=== PATIENT | female | born 1975 | race Caucasian/White ===

== ENCOUNTER 2016-08-08 09:13 | Observation (INO) | payer OTHER ==
--- NOTE | 2016-08-03 16:30 | CONS ---
DATE OF ADMISSION: 08/08/2016 DATE OF CONSULTATION: TYPE OF CONSULTATION: Preoperative internal medicine REASON FOR CONSULTATION: Consultation requested by Dr. Milton Warren for medical evaluation and clearance of a 41-year-old woman about to undergo surgery. Thank you, Dr. Warren, for allowing us to participate in care of this patient. HISTORY OF PRESENT ILLNESS: Clau Costa a 41-year-old woman, problems with her neck, currently b eing admitted for correction of the above problem. She has had neck issues for a while and hopefull y it will be corrected at this particular junction. In terms of her prior surgical history, the patient has had lumbar spine or lumbar disk surgery as w ell as breast reduction and laparoscopic cholecystectomy. She has not had any medical hospitalizati ons and her pregnancies were vaginal deliveries. Her general health has been good. MEDICATIONS: She currently takes no regular medications other than occasional pain medications. ALLERGIES: SHE IS SENSITIVE TO MORPHINE AND HAS ENVIRONMENTAL ALLERGIES. SOCIAL HISTORY: The patient is , has 2 children. She does not smoke or drink alcoholic beve rages. Does drink coffee. Usually has no difficulty sleeping at night and is employed. FAMILY HISTORY: Both parents are . Father at age 58 of an [place] and hypertension. Mothe r 51, congestive heart failure and other cardiac issues. Four siblings are in good health. There i s family history of heart, cancer, hypertension and stroke. No diabetes or thyroid issues. REVIEW OF SYSTEMS: HEENT: Periodic headaches. CARDIORESPIRATORY: Denies any chest pain or shortness of breath. GASTROINTESTINAL: No melena or hematemesis. GENITOURINARY: No urgency, frequency. GYNECOLOGIC: Regular menses, up to date . MUSCULOSKELETAL: Positive for neck pain. NEUROPSYCHIATRIC: Unremarkable. GENERAL HEALTH: As above. PHYSICAL EXAMINATION: VITAL SIGNS: The patient's blood pressure was 140/90, pulse was 80 and regular, respirations were 1 8, temperature 98.2, height 65 inches, weight 212 pounds. GENERAL: The patient was noted to be a well-developed, well-nourished female, alert and cooperative , in no apparent acute distress, oriented to time, place, and person. HEENT: Head was atraumatic. Eyes: Pupils were equal, reactive to light and accommodation. Fundi were benign. Tympanic membranes were unremarkable. Nose was negative. Mouth was unremarkable. Fa ir oral hygiene was present. NECK: Supple without any rigidity. Trachea was midline. Thyroid was unremarkable. Neck veins wer e flat. Carotid pulses were equal. No bruits were heard. BACK: Unremarkable. CHEST: Symmetrical. Breasts and axillary exam did not reveal any masses; however scars from prior breast reduction surgery were noted. LUNGS: Clear to percussion and auscultation. HEART: PMI is fifth intercostal space at the midclavicular line. Regular sinus rhythm was noted. No significant murmurs, rubs, or gallops being elicited. ABDOMEN: Soft, good bowel sounds were noted. No significant organomegaly, masses, or tenderness. PELVIC/RECTAL: Per rn ccu, unremarkable. EXTREMITIES: Did not reveal any clubbing, edema or cyanosis. Peripheral pulses were physiologic. SKIN: Moist and warm without any eruptions. No gross lymphadenopathy was noted. NEUROLOGIC: Grossly intact. IMPRESSION: 1. Cervical disk disease. 2. Status post lumbar spine surgery. 3. ALLERGIES ENVIRONMENTAL. 4. Stable health. DISCUSSION: Review of laboratory and other data revealed the following: The patient's chemistry pa kristie including electrolytes, glucose, BUN, creatinine were normal. Liver function tests were basical ly normal with minimal elevation of ALT and AST. test was negative. CBC, sed rate, UA, P T and PTT were normal as well. EKG was normal and the patient's chest x-ray was normal as well. Dr. Warren, I see no contraindication in this patient undergoing current proposed surgery under d esired form of anesthesia. I will follow her along with you during her stay at [facility]. Thank you again, Dr. Warren, for allowing us to participate in the care of this patient. Dictated By: MAYRA CASTRO/MIGUEL Conf#: [id number] DID#: [id number]
[2016-08-05 15:53] VITALS: BMI 35.0
[~2016-08-08] VITALS: Ht 165.1 cm; Wt 96.0 kg
[2016-08-08] VITALS (21 sets, daily range): BP systolic 96–137; BP diastolic 56–95; PULSE 77–110; RESP 11–22; Ht 165.1 cm; Wt 96.0 kg
[~2016-08-08 09:13] MED LIST: BUPIVACAINE 0.25%/EPI (SDV) 30 ML INJ INJ ONE; CARI350T PO; CEFAZOLIN 1 GM INJ ONE; GABA250S PO; HYDR-3612 PO; LORA-441 PO
[2016-08-08] MEDS ORDERED: CEFAZOLIN 2 GM/50 ML (PMX) 50 ML IVPB ONE (10:00)
[2016-08-08] MEDS ORDERED: LACTATED RINGER'S 1,000 ML IV* ONE (10:00)
--- NOTE | 2016-08-08 11:41 | HPN ---
Date/Time of Note Date/Time of Note DATE: 08/08/16 TIME: 11:41 Interval H&P Admission Note Pt. seen H&P reviewed: No system changes TERESA BARBOZA PA-C Aug 08, 2016 11:41
[2016-08-08] MEDS ORDERED: POLYMYXIN/BACITRACIN 1L IRRIG ONE (11:53)
[2016-08-08] MEDS ORDERED: THROMBIN 5000 UNIT VIAL ONE (11:53)
[2016-08-08] MEDS ORDERED: GELATIN SIZE 100 SPONGE ONE (11:53)
[2016-08-08] MEDS ORDERED: BUPIVACAINE 0.25%/EPI (SDV) 30 ML INJ ONE (11:53)
[2016-08-08] MEDS ORDERED: SURGIFOAM POWDER 1 GM KIT ONE (11:57)
[2016-08-08] MEDS ORDERED: NALOXONE (0.4 MG/ML) INJ IV PRN (12:00)
[2016-08-08] MEDS ORDERED: ACETAMINOPHEN 325 MG TAB PO PRN (12:00)
[2016-08-08] MEDS ORDERED: ZOLPIDEM 5 MG TAB PO PRN (12:00)
[2016-08-08] MEDS ORDERED: HYDROmorphONE 1 MG/ML SYG IV PRN (12:00)
[2016-08-08] MEDS ORDERED: DIPHENHYDRAMINE 50 MG INJ IV PRN ×2 (12:00→15:30)
[2016-08-08] MEDS ORDERED: CEFAZOLIN 1 GM/50 ML (PMX) 50 ML IVPB SCH (12:00)
[2016-08-08] MEDS ORDERED: OXYCODONE/ACETAMINOPHEN (10/325) TAB PO PRN ×2 (12:00)
[2016-08-08] MEDS ORDERED: CYCLOBENZAPRINE 10 MG TAB PO PRN (12:00)
[2016-08-08] MEDS ORDERED: AL HYDROX/MG HYDROX/SIMETH 30 ML CUP PO PRN (12:00)
[2016-08-08] MEDS ORDERED: CEPASTAT LOZENGE MT PRN (12:00)
[2016-08-08] MEDS ORDERED: BISACODYL 10 MG SUPP PR PRN (12:00)
[2016-08-08] MEDS ORDERED: LIDOCAINE 2% (SDV) 5 ML INJ ONE (12:16)
[2016-08-08] MEDS ORDERED: PROPOFOL 20 ML ONE (12:16)
[2016-08-08] MEDS ORDERED: MIDAZOLAM 1 MG/ML 2 ML INJ ONE (12:16)
[2016-08-08] MEDS ORDERED: ROCURONIUM 50 MG INJ ONE (12:16)
[2016-08-08] MEDS ORDERED: NEOSTIGMINE 3 MG/3 ML SYRINGE ONE (12:16)
[2016-08-08] MEDS ORDERED: GLYCOPYRROLATE 0.4 MG INJ ONE (12:16)
[2016-08-08] MEDS ORDERED: FENTAnyl 50 MCG/ML VIAL ONE (12:17)
[2016-08-08] MEDS ORDERED: DEXAMETHASONE 4 MG/ML 1 ML INJ ONE (12:20)
[2016-08-08] MEDS ORDERED: ONDANSETRON 4 MG INJ ONE (12:20)
[2016-08-08] MEDS ORDERED: LABETALOL HCL 20MG INJ ONE (12:54)
[2016-08-08] MEDS ORDERED: hydrALAzine 20 MG INJ ONE (13:04)
[2016-08-08] MEDS ORDERED: THROMBIN 5000 UNIT VIAL TOP ONE ×2 (13:26)
[2016-08-08] MEDS ORDERED: POLYMYXIN/BACITRACIN 1L IRRIG IRR ONE (13:26)
[2016-08-08] MEDS ORDERED: GELATIN SIZE 100 SPONGE TOP ONE (13:26)
[2016-08-08] MEDS ORDERED: EPHEDrine SULFATE 50 MG/5 ML SYG ONE (14:03)
[2016-08-08] MEDS ORDERED: LIDOCAINE 4% CR ONE (14:04)
[2016-08-08] MEDS: HYDROmorphONE 0.2 MG/ML PCA IV SCH ×2 (15:17→23:50)
[2016-08-08] MEDS: FENTAnyl 50 MCG/ML VIAL IV PRN ×2 (15:26→15:44)
[2016-08-08] MEDS ORDERED: MIDAZOLAM 1 MG/ML 2 ML INJ IV PRN (15:30)
[2016-08-08] MEDS ORDERED: FENTAnyl 50 MCG/ML VIAL IV PRN (15:30)
[2016-08-08] MEDS ORDERED: EPHEDrine SULFATE 50 MG/5 ML SYG IV PRN (15:30)
[2016-08-08] MEDS ORDERED: MEPERIDINE 25 MG INJ IV PRN (15:30)
[2016-08-08] MEDS ORDERED: LABETALOL HCL 20MG INJ IV PRN (15:30)
[2016-08-08] MEDS ORDERED: ONDANSETRON 4 MG INJ IV PRN (15:30)
[2016-08-08] MEDS ORDERED: hydrALAzine 20 MG INJ IV PRN (15:30)
[2016-08-08] MEDS ORDERED: ATROPINE 1 MG/10 ML SYRINGE IV PRN (15:30)
--- NOTE | 2016-08-08 16:37 | RADRPT ---
PROCEDURE: Intraoperative imaging of the cervical spine with fluoroscopy. CLINICAL INDICATION: Neck pain. Intraoperative. TECHNIQUE: 6 images of the cervical spine were obtained in the operating room with an image intens ifier. No radiologist was in attendance. 15.6 seconds of fluoroscopy time was used. COMPARISON: No prior study is available for comparison. FINDINGS: Surgical instruments are noted overlying the cervical spine. Final images demonstrate anterior fusi on with plate and screws at C6-7. IMPRESSION: 1. Intraoperative imaging of the cervical spine. RPTAT: QQ .Rick Kimble MD, MD Date Time Electronically viewed and signed by .Rick Kimble MD, MD on 08/08/2016 16:29 .R/
--- NOTE | 2016-08-08 16:45 | OPR ---
DATE OF OPERATION: 08/08/2016 PREOPERATIVE DIAGNOSES: 1. C6-7 cervical disk disease and stenosis. 2. Cervical radiculopathy. POSTOPERATIVE DIAGNOSES: 1. C6-7 cervical disk disease and stenosis with instability. 2. Cervical radiculopathy. IMPLANTS: 1. RTI structural allograft 16 x 14 mm footprint with 7 mm height and 7 degrees lordosis. 2. Fibergraft. OPERATION PERFORMED: 1. Anterior cervical diskectomy and spinal cord decompression at C6-7: 2. Anterior cervical fusion at C6-7. 3. Anterior hardware placement at C6-7. 4. Use of structural allograft. 5. Use of C-arm fluoroscopy with interpretation without radiologist present. 6. Intraoperative neuromonitoring (1 hour 15 minutes). 7. Use of operative microscope. 8. BMI 36. PRIMARY SURGEON: Milton Warren MD MANAGER TRANSITION: RA Toscano NEED FOR OCCUPATIONAL THERAPIST'S ASSISTANT: During this spinal surgical procedure, my golf course assistant was used to retrac t and protect the spinal nerves and dural sac. My golf course assistant also employed the suction catheters to evacuate blood from the surgical field to improve visualization of the neural structures. The rhona tant was medically necessary to facilitate the completion of the surgery in a safe and expeditious cash. State of [place] regulations, as well as hospital bylaws, preclude the use of non-license d health care personnel, such as operating room technicians, to perform these functions. FINDINGS: Neuromonitoring at the start of the case revealed left C6 and left C7, right C7 amplitude down 40%. At the end of the case, nerve signals returned to normal. The patient had stenosis and instability at C6-7. ESTIMATED BLOOD LOSS: 20 mL. DRAINS: None. SPECIMENS: C6-7 disks were sent to Pathology. COMPLICATIONS OF PROCEDURES: None. ANESTHESIOLOGIST: MONCHO BANUELOS MD. TYPE OF ANESTHESIA: General. INDICATIONS FOR PROCEDURE: This is a 41-year-old female with cervical disk disease, stenosis and ra diculopathy. She has failed nonoperative measures, therefore, I recommended proceeding with above-m entioned surgery. Preoperatively, we discussed the risks, benefits, and alternatives. She understo od and wished to proceed. DESCRIPTION OF PROCEDURE IN DETAIL: The patient was identified in the preoperative holding area, [facility], taken to the operating room, where she was successfully placed under general a nesthesia by Dr. Banuelos. Neuromonitoring leads were placed, sequential compressive devices were keyana lied. Neuromonitoring was utilized during the procedure for 1 hour 15 minutes to include SSEP, MEP and EMG. This was performed by [email or web address]. Start time was 1:30 p.m., closure time was 2:45 p .m. The patient was placed on the operating table in supine position. All bony prominences were we ll padded. Towel rolls were placed behind the neck and between the scapular blades and the arms wer e tucked at the side and neck was extended. The neck was prepped, draped in usual sterile fashion. Due to the patient's obesity, I was unable to take an iliac crest graft due to the difficulty and r isk of infection. The insurance carrier did not allow the use of a Peek cervical cage and, therefor e, I had to utilize allograft. The cortical cancellous allografts available were too small of a anton tprint being 12 x 14 mm and therefore, I had to use a structural cortical allograft. Although small , this was a 16 x 14 mm with the hole in the center for which I had to utilize synthetic allograft in order to complete the fusion. I performed a left-sided neck incision and approach to the spine. I incised the skin and then incised the platysma in line with the skin incision. I then identified the interval between the sternocleidomastoid and strap muscles which I finger dissected down to the spine. I placed a bent spinal needle into the C6-7 disk and took lateral images which confirmed th is level. Once this was confirmed, I subperiosteally dissected the longus coli musculature. I plac ed self-retaining retractors. Anesthesiologist deflated and reinflated the endotracheal cuff. Micr oscope was brought in and annulotomy was made followed by radical diskectomy using curets, Kerrison punches, pituitary rongeurs and a high speed bur. I prepared the endplates. I took down the testing and regulating technician ior osteophytes and then removed the posterior longitudinal ligament and decompressed the neural for hieu bilaterally. At this point, all nerve signals returned to normal. I then placed various tria ls and although the 6 mm allowed for some distraction, the graft was loose and therefore, I had to u se a 7 mm height graft. I then took the cortical structural allograft within which I placed the Fib ergraft and I impacted this into the disk space to complete the anterior cervical fusion at C6-7. I then took the anterior cervical 12 mm plate and placed 12 mm screws into the C6-C7 bodies. Once th e anterior hardware was completed, I took final AP and lateral images after placement of the hardwar e and alignment of the spine. The wound was then copiously irrigated. Surgifoam, Gelfoam, thrombin , and bipolar cautery was used to achieve hemostasis. The wound was dry and therefore, I elected no t to place a drain. Retractors were removed and I closed the platysma with a running 2-0 Vicryl sti tch. I closed subcutaneous tissue with a 3-0 Vicryl stitch. Dermabond was then applied. The patie nt was then awakened from anesthesia and taken to recovery room in stable condition. Lap, sponge, a nd instrument counts were correct x2. There were no apparent complications during the procedure. The patient will be admitted to the [facility] for routine postoperative care to include pain c ontrol, neurovascular checks, antibiotics, and physical therapy. Dictated By: MILTON ZALDIVAR/MIGUEL Conf#: [id number] DID#: [id number]
[2016-08-08] MEDS: D5W-0.45 NACL + KCL 20 MEQ 1,000 ML IV SCH ×2 (17:56→20:41)
[2016-08-08] MEDS: DOCUSATE SODIUM 100 MG CAP PO SCH (20:39)
[2016-08-08] MEDS: CEFAZOLIN 1 GM/50 ML (PMX) 50 ML IVPB SCH (20:39)
--- NOTE | 2016-08-08 20:49 | CONS ---
DATE OF ADMISSION: 08/08/2016 DATE OF CONSULTATION: POSTOP CONSULTATION FOLLOWUP The patient was seen postoperatively in her room on the fourth floor with . Patient quite alert and talking freely, stating that her pain is minimal and tolerable and that her prior pain seems to be better, the radiating pain to the back and down the arm. PHYSICAL EXAMINATION: VITAL SIGNS: The patient's blood pressure 126/69, respirations 16, pulse 89, O2 saturation 98%. Th e patient on room air at the time. The patient was afebrile before. HEENT: Unremarkable. LUNGS: Clear. HEART: Reveals a regular rhythm. ABDOMEN: Revealed bowel sounds to be present. Ice pack is noted on the neck. IMPRESSION: 1. Status post cervical disk surgery. 2. Status post lumbar spine surgery in the past but currently cervical disk. 3. Environmental allergies. 4. Stable health. DISCUSSION: Plan is to monitor this patient's general medical condition. All her preoperative medi cations are basically p.r.n.s for pain. Other things, appropriate pain medication has been ordered by Dr. Warren. Thank you, Dr. Warren, for allowing us to participate in the care of this patient. We will follo w her along with you. Dictated By: MAYRA CASTRO/MIGUEL Conf#: [id number] DID#: [id number]
[2016-08-09 00:03] VITALS: BP 126/71; RESP 16
[2016-08-09] MEDS: ONDANSETRON 4 MG INJ IV PRN ×2 (02:34→13:56)
[2016-08-09] MEDS: CEFAZOLIN 1 GM/50 ML (PMX) 50 ML IVPB SCH ×2 (04:34→12:30)
[2016-08-09] MEDS: D5W-0.45 NACL + KCL 20 MEQ 1,000 ML IV SCH ×2 (04:44→07:41)
[2016-08-09 05:40] LABS: ADD SCAN DIFF NO
[2016-08-09 05:51] LABS: BASOPHILS % 0.1 % (0.0-2.0); HEMATOCRIT 38.3 % (37.0-47.0); HEMOGLOBIN 12.9 g/dl (12.0-16.0); LYMPHOCYTES # 1.1 10^3/ul (0.8-2.9); LYMPHOCYTES % 7.7 % (15.0-51.0); MEAN CORPUSCULAR HEMOGLOBIN 31.1 pg (29.0-33.0); MEAN CORPUSCULAR HGB CONC 33.7 g/dl (32.0-37.0); MEAN CORPUSCULAR VOLUME 92.3 fl (82.0-101.0); MEAN PLATELET VOLUME 9.6 fl (7.4-10.4); MONOCYTE # 0.7 10^3/ul (0.3-0.9); MONOCYTES % 4.7 % (0.0-11.0); NEUTROPHIL # 12.1 10^3/ul (1.6-7.5); NEUTROPHILS % 87.1 % (39.0-77.0); PLATELET COUNT 267 10^3/UL (140-415); RED BLOOD COUNT 4.15 10^6/ul (4.20-5.40); RED CELL DISTRIBUTION WIDTH 12.5 % (11.5-14.5); WHITE BLOOD COUNT 13.9 10^3/ul (4.8-10.8)
[2016-08-09 05:57] LABS: POTASSIUM 4.8 mmol/L (3.5-5.1)
[2016-08-09 06:00] LABS: CREATININE 0.64 mg/dl (0.44-1.00)
[2016-08-09 06:01] LABS: CALCIUM 8.8 mg/dl (8.4-10.2); MAGNESIUM 1.9 mg/dl (1.7-2.5)
[2016-08-09 08:07] VITALS: BP 105/61; RESP 18
[2016-08-09] MEDS: DOCUSATE SODIUM 100 MG CAP PO SCH (08:42)
--- NOTE | 2016-08-09 08:54 | CONS ---
DATE OF ADMISSION: 08/08/2016 DATE OF CONSULTATION: Patient had surgery yesterday with Dr. Milton Warren. HISTORY OF PRESENT ILLNESS: Patient is quite alert in bed. He had a good night, feels well. PHYSICAL EXAMINATION: VITAL SIGNS: Temperature 97.9, pulse 100, respirations 18, blood pressure 105/61, O2 sat 91% on korey m air. HEENT: Unremarkable, save for scar on the left anterior from his cervical fusion. LUNGS: Clear. HEART: Reveals a regular rhythm. ABDOMEN: Unremarkable. IMPRESSION: 1. Status post cervical spine surgery. 2. History of environmental allergies. 3. Stable health. DISCUSSION: Patient doing quite well at this particular point in time. Management will be ultimate ly per Dr. Warren in terms of activity, discharge, etc. CONDITION: Quite stable at this particular point in time. Thank you again, Dr. Warren, for allowing us to participate in the care of this patient. Dictated By: MAYRA CASTRO/MIGUEL Conf#: [id number] DID#: [id number]
[2016-08-09] MEDS ORDERED: OXYCODONE/ACETAMINOPHEN (10/325) TAB PO SCH (09:30)
--- NOTE | 2016-08-09 10:20 | DS ---
DATE OF ADMISSION: 08/08/2016 DATE OF DISCHARGE: 08/09/2016 ADMITTING DIAGNOSIS: C6 to C7 disk herniation and stenosis. DISCHARGE DIAGNOSIS: C6 to C7 disk herniation and stenosis. PROCEDURE PERFORMED: The patient was taken to the operating room on 08/08/2016 and underwent ACDF a t C6 to C7. HOSPITAL COURSE: The patient was admitted to [facility] after undergoing the above procedure. Her postoperative course was uncomplicated. By postoperative day 1, she was deemed stable for disc harge with followup arranged with the undersigned. Dictated By: JIM ZALDIVAR/MIGUEL Conf#: [id number] DID#: [id number]
== END 2016-08-09 13:50 | disposition home or self-care (01) ==
LOC: SDS 09:13 → MS1 11:44 → EDSTATUS 12:00 → MS1 16:15
PROVIDERS: ADMIT Specialist; ATTEND Specialist
DX: M50.123 Cervical disc disorder at C6-C7 level with radiculopathy (principal); M48.02 Spinal stenosis, cervical region; I10 Essential (primary) hypertension; E66.9 Obesity, unspecified; Z68.35 Body mass index [BMI] 35.0-35.9, adult; Z88.6 Allergy status to analgesic agent; Z82.3 Family history of stroke; Z82.49 Family history of ischemic heart disease and other diseases of the circulatory system
CPT/HCPCS: 20931; 22551; 72040; 80048; 83735; 85025; 96374; 96376; 97163; C1713; G0378; J0690; J1100; J1170; J2250; J2405; J2710; J3010; J3480; J0360

== ENCOUNTER 2017-02-27 10:23 | Inpatient (IN) | payer OTHER ==
--- NOTE | 2017-02-22 15:22 | PREOPHP ---
DATE OF ADMISSION: 02/27/2017 TYPE OF REPORT: Preoperative internal medicine consultation history and physical. REASON FOR CONSULTATION: The patient to have surgery with Dr. Milton Warren on 02/27/2017. REQUESTING PHYSICIAN: MILTON WARREN MD for medical evaluation and clearance of a 41-year-old andreas rahman about to undergo surgery. Thank you, Dr. Warren, for allowing us to participate in the care of this patient. HISTORY OF PRESENT ILLNESS: Clau Costa is a 41-year-old woman with prior cervical spine surgery at C6-C7 who is currently requiring surgery at C5-C6 as well and will be undergoing both fusion at that level and removal of hardware on her prior surgical area. She has had both lumbar disk and cer vical disk surgeries in the past as well as a breast reduction. Other than that, she has really had no other major surgical procedures. She had vaginal deliveries with her pregnancies and has had no specific other hospitalizations. She has not broken any bones. MEDICATIONS: She is currently taking 1. Lyrica 75 mg t.i.d. 2. Flexeril 10 mg t.i.d. 3. [place] 10/325 as needed for pain. ALLERGIES: SHE IS SENSITIVE TO MORPHINE AND DOES HAVE SOME ENVIRONMENTAL ALLERGIES. Her general health has been good. SOCIAL HISTORY: The patient is , has 2 children. She does not smoke or drink alcoholic beve rages. Does drink coffee, is employed and usually has no difficulty sleeping at night. FAMILY HISTORY: Both parents are . Father at age 58 of an [place], had hypertension. Moth er 51. Also, of heart issues, had heart disease and eventually had congestive cardiomyopathy. Four siblings are in good health. There is family history of heart, cancer, hypertension, stroke, no diabetes or thyroid issues. REVIEW OF SYSTEMS HEENT: Periodic tension headaches. CARDIORESPIRATORY: Denies any chest pain or shortness of breath. GASTROINTESTINAL: No melena or hematemesis. GENITOURINARY: No urgency or frequency. GYNECOLOGIC: Still has regular menses and is up to date with her can solderer. MUSCULOSKELETAL: Positive for neck pain. NEUROPSYCHIATRIC: Unremarkable. GENERAL HEALTH: As above. PHYSICAL EXAMINATION: VITAL SIGNS: The patient's blood pressure was 146/84, pulse was 84 and regular, respirations were 1 8, temperature 98.2, height 5 feet 5 inches, weight 204 pounds. GENERAL: The patient was noted to be a well-developed, well-nourished female, alert and cooperative , in no apparent acute distress, oriented to time, place and person. HEAD, EARS, EYES, NOSE AND THROAT: Head was atraumatic. Eyes: Pupils were equal, reactive to ligh t and accommodation. Fundi were benign. Tympanic membranes were unremarkable. Nose was negative. Mouth was unremarkable. Fair oral hygiene was present. NECK: Supple without any rigidity. Trachea was midline. Thyroid was within normal limits. Neck v eins were flat. Carotid pulses were equal. No bruits were heard and a scar was noted from her prio r anterior cervical fusion. BACK: Unremarkable other than scars from prior lumbar spine surgery. CHEST: Chest was symmetrical with evidence of bilateral breast reduction surgery was noted, no obvi ous masses in either breast or axillary being noted. LUNGS: Clear to percussion and auscultation. HEART: PMI is fifth intercostal space at the midclavicular line. Regular sinus rhythm was noted. No significant murmurs, rubs, or gallops being elicited. ABDOMEN: Soft, good bowel sounds were noted. No significant organomegaly, masses or tenderness. GENITALIA: Normal female genitalia. PELVIC/RECTAL: Per can solderer, up to date, unremarkable. EXTREMITIES: Did not reveal any clubbing, edema or cyanosis. Peripheral pulses were physiologic. SKIN: Moist and warm without any eruptions. No gross lymphadenopathy was noted. NEUROLOGIC: Grossly intact. IMPRESSION: 1. Cervical disk disease status post cervical spine and lumbar spine surgery. 2. Environmental allergies. 3. Metabolic issues. 4. Stable health. LABORATORY DATA: Review of laboratory and other data revealed the following: The patient's chemis try panel including electrolytes, glucose, BUN and creatinine were normal. The patient's liver func tion tests revealed minimal elevation of SGPT and SGOT and mild bilirubin and increase TSH, pregnanc y test, CBC, sed rate, PT and PTT were normal. Urinalysis will be obtained at a later date. The marciano malin's EKG was normal as was her chest x-ray. DISCUSSION: Dr. Milton Warren, I see no contraindication in this patient undergoing current propo sed surgery under desired form of anesthesia. I feel she is a suitable candidate at this particular point in time. We will be more than happy to follow her along with you during her stay at [facility]. Thank you again, Dr. Warren, for allowing us to participate in care of this patient. Dictated By: MAYRA CASTRO/MIGUEL Conf#: [id number] DID#: [id number]
[~2017-02-27] VITALS: Ht 165.1 cm; Wt 92.8 kg
[2017-02-27] VITALS (10 sets, daily range): BP systolic 107–142; BP diastolic 57–90; PULSE 71–107; RESP 15–20; Ht 165.1 cm; Wt 92.8 kg
[~2017-02-27 10:23] MED LIST changes: -BUPIVACAINE 0.25%/EPI (SDV) 30 ML INJ INJ ONE; -CEFAZOLIN 1 GM INJ ONE
[2017-02-27] MEDS ORDERED: HYDR-902 PO (11:22)
[2017-02-27] MEDS ORDERED: CYCL-319 PO (11:23)
[2017-02-27] MEDS ORDERED: LYR75 PO (11:24)
[2017-02-27] MEDS ORDERED: BUPIVACAINE 0.5%/EPI (SDV) 30 ML INJ ONE (11:48)
[2017-02-27] MEDS ORDERED: CA CHLORIDE 10% 10 ML SYRINGE ONE (11:48)
[2017-02-27] MEDS ORDERED: THROMBIN 5000 UNIT VIAL ONE (11:48)
[2017-02-27] MEDS ORDERED: SURGIFOAM POWDER 1 GM KIT ONE (11:48)
[2017-02-27] MEDS ORDERED: POLYMYXIN/BACITRACIN 1L IRRIG ONE (11:49)
--- NOTE | 2017-02-27 11:56 | HPN ---
Date/Time of Note Date/Time of Note DATE: 02/27/17 TIME: 11:55 Interval H&P Admission Note Pt. seen H&P reviewed: No system changes TERESA BARBOZA PA-C Feb 27, 2017 11:56
[2017-02-27] MEDS ORDERED: NALOXONE (0.4 MG/ML) INJ IV PRN (12:00)
[2017-02-27] MEDS ORDERED: DIPHENHYDRAMINE 50 MG INJ IV PRN ×2 (12:00→13:30)
[2017-02-27] MEDS ORDERED: CYCLOBENZAPRINE 10 MG TAB PO PRN (12:00)
[2017-02-27] MEDS ORDERED: ACETAMINOPHEN 325 MG TAB PO PRN (12:00)
[2017-02-27] MEDS ORDERED: ONDANSETRON 4 MG INJ IV PRN ×2 (12:00→13:30)
[2017-02-27] MEDS ORDERED: BISACODYL 10 MG SUPP PR PRN (12:00)
[2017-02-27] MEDS ORDERED: ZOLPIDEM 5 MG TAB PO PRN (12:00)
[2017-02-27] MEDS ORDERED: HYDROmorphONE 0.5 MG/0.5 ML SYG IV PRN (12:00)
[2017-02-27] MEDS ORDERED: AL HYDROX/MG HYDROX/SIMETH 30 ML CUP PO PRN (12:00)
[2017-02-27] MEDS ORDERED: CEPASTAT LOZENGE MT PRN (12:00)
[2017-02-27] MEDS ORDERED: MIDAZOLAM 1 MG/ML 2 ML INJ ONE (12:06)
[2017-02-27] MEDS ORDERED: METOCLOPRAMIDE 10 MG INJ ONE (12:07)
[2017-02-27] MEDS ORDERED: HYDROmorphONE 2 MG/ML SYG ONE (12:17)
[2017-02-27] MEDS ORDERED: CEFAZOLIN 1 GM INJ ONE (12:26)
[2017-02-27] MEDS ORDERED: PROPOFOL 20 ML ONE (12:26)
[2017-02-27] MEDS ORDERED: ROCURONIUM 50 MG INJ ONE ×2 (12:26→12:44)
[2017-02-27] MEDS ORDERED: METOPROLOL 5 MG INJ ONE (13:00)
[2017-02-27] MEDS ORDERED: DEXAMETHASONE 4 MG/ML 1 ML INJ ONE (13:02)
[2017-02-27] MEDS ORDERED: LABETALOL HCL 20MG INJ IV PRN (13:30)
[2017-02-27] MEDS ORDERED: MEPERIDINE 25 MG INJ IV PRN (13:30)
[2017-02-27] MEDS ORDERED: hydrALAzine 20 MG INJ IV PRN (13:30)
[2017-02-27] MEDS ORDERED: HYDROmorphONE (0.2 MG/ML) 10ML SYG IV PRN ×3 (13:30)
[2017-02-27] MEDS ORDERED: METOCLOPRAMIDE 10 MG INJ IV PRN (13:30)
[2017-02-27] MEDS ORDERED: GLYCOPYRROLATE 0.4 MG INJ ONE (14:08)
[2017-02-27] MEDS ORDERED: NEOSTIGMINE 3 MG/3 ML SYRINGE ONE (14:08)
--- NOTE | 2017-02-27 14:24 | SIPON ---
Date/Time of Note Date/Time of Note DATE: 02/27/17 TIME: 14:23 Operative Report Preoperative Diagnosis C5-6 stenosis Postoperative Diagnosis C5-6 stenosis Operation/Procedure Performed C5-6 ACDF Surgeon see signature line elder assistant Alli Anesthesia: general Estimated blood loss: 10 - 50 ml's Transfusion Required none Specimen disk and hw Grafts/Implants cervical plate and cage Complications none JIM ZAMBRANO MD Feb 27, 2017 14:24
[2017-02-27] MEDS: HYDROmorphONE 0.2 MG/ML PCA IV SCH ×2 (14:28→22:43)
[2017-02-27] MEDS: CEFAZOLIN 1 GM/50 ML (PMX) 50 ML IVPB SCH ×2 (14:32→20:00)
--- NOTE | 2017-02-27 15:27 | RADRPT ---
PROCEDURE: Intraoperative imaging of the cervical spine with fluoroscopy. CLINICAL INDICATION: Neck pain. Intraoperative. TECHNIQUE: 6 images of the cervical spine were obtained in the operating room with an image intens ifier. No radiologist was in attendance. Fluoroscopy time is 9.4 seconds. COMPARISON: 08/08/2016. FINDINGS: Surgical instruments are noted overlying the cervical spine. Images demonstrate anterior fusion with a plate and screws at C5-6. Intervertebral disc spacer is al so present at C5-6. IMPRESSION: 1. Intraoperative imaging of the cervical spine. RPTAT: QQ .Rick Kimble MD, Date Time Electronically viewed and signed by .Rick Kimble MD, on 02/27/2017 15:27 .R/
[2017-02-27] MEDS: D5W-0.45 NACL + KCL 20 MEQ 1,000 ML IV SCH ×2 (15:56→21:56)
--- NOTE | 2017-02-27 17:18 | CONS ---
Date/Time of Note Date/Time of Note DATE: 02/27/17 TIME: 17:12 Consult Date/Type/Reason Admit Date/Time Feb 27, 2017 at 10:23 Initial Consult Date 02/20/2017 Type of Consultation: internal medicine Reason for Consultation pre operative medical evaluation and clearance Ordering Provider: JIM ZAMBRANO MD Subjective alert no complaints feels ok Objective Vital Signs Date Time Temp Pulse Resp B/P Pulse Ox O2 Delivery O2 Flow Rate FiO2 02/27/17 14:26 97.8 02/27/17 14:20 97 15 142/80 100 Mask 10.0 Exam vss heent unremarkable scar from todays surgery right neck anterior lungs clear heart regular rhythm abdomen soft Results/Medications Medications Current Medications Potassium Chloride/Dextrose/ Sod Cl (D5-1/2ns + KCl 20 Meq) 1,000 ml @ 100 mls/ hr Q10H IV Last administered on 02/27/17 15:56; Admin Dose 100 MLS/HR; Start 02/27/17 at 11:56 Oxycodone/ Acetaminophen (Endocet (10/ 325)) 1 tab Q4H PRN PO PAIN LEVEL 1-5; Start 02/28/17 at 09:30 Oxycodone/ Acetaminophen (Endocet (10/ 325)) 2 tab Q4H PRN PO PAIN LEVEL 6-10; Start 02/28/17 at 09:30 Hydromorphone HCl 0.2 mg 0.2 mg Q1H PRN IV BREAKTHROUGH PAIN; Start 02/27/17 at 12:00 Cefazolin Sodium (Ancef 1 Gm/50 ml (Pmx)) 50 ml @ 100 mls/hr Q8H IVPB Last administered on 02/27/17 14:32; Admin Dose 100 MLS/HR; Start 02/27/17 at 12: 00; Stop 02/28/17 at 04:29 Ondansetron HCl (Zofran Inj) 4 mg Q6H PRN IV NAUSEA AND/OR VOMITING; Start at 12:00 Bisacodyl (Dulcolax Supp) 10 mg DAILY PRN TN CONSTIPATION; Start 02/27/17 at 12:00 Docusate Sodium (Colace) 100 mg BID PO ; Start 02/27/17 at 21:00 Al Hydrox/Mg Hydrox/Simethicone (Mag-Al Plus) 15 ml Q6H PRN PO CONSTIPATION/ DYSPEPSIA; Start 02/27/17 at 12:00 Acetaminophen (Tylenol Tab) 650 mg Q4H PRN PO CARROLL OR TEMP GREATER THAN 101.3F; Start 02/27/17 at 12:00 Cyclobenzaprine HCl (Flexeril) 10 mg TID PRN PO MUSCLE SPASMS; Start 02/27/17 at 12:00 Phenol (Cepastat Lozenge) 1 lozenge PRN PRN MT SORE THROAT; Start 02/27/17 at 12:00 Diphenhydramine HCl (Benadryl) 25 mg Q6H PRN IV ITCHING; Start 02/27/17 at 12: 00 Naloxone HCl (Narcan) 0.2 mg Q2M PRN IV RR 8 BREATHS/MIN OR LESS; Start at 12:00 Hydromorphone HCl (Dilaudid WASH BARREL LEADER) WASH BARREL LEADER to be started in PACU Q4PCA IV Last administered on 02/27/17t 14:28; Admin Dose 6 MG; Start 02/27/17 at 12:00; Stop 02/28/17 at 10:00 Miscellaneous Information 1. Hold WASH BARREL LEADER at 1,000... WASH BARREL LEADER IV ; Start 02/27/17 at 12 :00 Assessment/Plan Chief Complaint/Hosp Course post op cervical disc surgery doing well medically stable Problems: Additional Assessment/Plan pre -op meds reordered will follow with you ---thank you MAYRA Mulligan MD Feb 27, 2017 17:18
[2017-02-27] MEDS: PREGABALIN 75 MG CAP PO SCH (20:30)
[2017-02-27] MEDS: DOCUSATE SODIUM 100 MG CAP PO SCH (20:30)
[2017-02-27] MEDS ORDERED: CYCLOBENZAPRINE 10 MG TAB PO SCH (21:00)
[2017-02-28 00:24] VITALS: BP 148/76; RESP 20
[2017-02-28] MEDS: D5W-0.45 NACL + KCL 20 MEQ 1,000 ML IV SCH (03:43)
[2017-02-28] MEDS: CEFAZOLIN 1 GM/50 ML (PMX) 50 ML IVPB SCH (03:46)
--- NOTE | 2017-02-28 04:05 | OPR ---
DATE OF OPERATION: 02/27/2017 PREOPERATIVE DIAGNOSES: 1. Previous ACDF at C6-7. 2. 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 POSTOPERATIVE DIAGNOSES: 1. Previous ACDF at C6-7. 2. 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 PROCEDURE: 1. Anterior cervical diskectomy and spinal cord decompression at C5-6. 2. Placement of intervertebral biomechanical device at C5-6. 3. Placement of anterior cervical hardware at C5-6. 4. Placement of intervertebral biomechanical device x1. 5. Anterior fusion at C5-6. 6. Removal of hardware at C6-7. 7. Evaluation of fusion at C6-7. 8. Use of allograft. 9. Use of C-arm fluoroscopy with interpretation without radiologist present. 10. Use of operative microscope. 11. Intraoperative neuromonitoring (1.5 hours). PRIMARY SURGEON: Milton Warren MD ACUTE CARE OCCUPATIONAL THERAPIST: RA Toscano NEED FOR ELECTRONIC HEALTH RECORDS SPECIALIST: During this spinal surgical procedure, my fitter's assistant was used to retrac t and protect the spinal nerves and dural sac. My fitter's assistant also employed the suction catheters to evacuate blood from the surgical field to improve visualization of the neural structures. The rhona tant was medically necessary to facilitate the completion of the surgery in a safe and expeditious m cash. State of [place] regulations, as well as hospital bylaws, preclude the use of non-license d health care personnel, such as operating room technicians, to perform these functions. FINDINGS: Neuromonitoring at the start of the case revealed left C5 amplitude down 30%, right C5 am plitude down 20%, bilateral C6 amplitude down 50%. At the end of the case, nerve signals returned t o normal. The patient had instability at C5-6 with an extruded herniation. There appeared to fusio n at C6-7. IMPLANTS: 1. NeuroStructures Cavetto Phusion 5 x 16.5 x 14.5 mm cage. 2. NeuroStructures Transom 12 mm plate with 12 mm screws. 3. Fibergraft matrix. ESTIMATED BLOOD LOSS: 40 mL. DRAINS: None. SPECIMENS: 1. Hardware. 2. C5-6 disk. COMPLICATIONS OF PROCEDURES: None. ANESTHESIOLOGIST: Dr. Jesus TYPE OF ANESTHESIA: General. INDICATIONS FOR PROCEDURE: This is a 41-year-old female who previously underwent ACDF at C6-7. 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 She failed co nservative measures and it was recommended that she undergo the above procedure. Preoperatively, we discussed the risks, benefits and alternatives. She understood and wished to proceed. DESCRIPTION OF PROCEDURE: The patient was identified in the preoperative holding area, given Ancef antibiotic, taken to the operating room, where she was successfully placed under general anesthesia. Neuromonitoring leads were placed, sequential compressive devices were applied. Neuromonitoring w as utilized during the procedure for 1.5 hours to include SSEP, MEP and EMG. Start time was 12:50 p .m., closure time was 2:15 p.m. The patient was placed on the operating room table in supine positi on. Arms were tucked to the side. Towel rolls were placed. Neck was prepped and draped in usual s terile fashion. I injected 2 mL of Marcaine with epinephrine. I made a left-sided approach, stayin g above the previous incision. Skin was incised. The platysma was then incised in line with the sk in incision. There was scar tissue identified at the sternocleidomastoid and strap muscle interval, but I was able to dissect through this carefully. Once the intervals were identified, I finger dis sected onto the anterior cervical spine. I retracted the area. I was able to identify the cervical plate. I cleared the soft tissue off the cervical plate and removed the cervical plate that was at C6-7, and this was sent to pathology. I evaluated the fusion and this level appeared to be solidly fused. I then put a bent spinal needle into what was felt to be the C5-6 level, and I took a later al film to confirm the correct levels. Once this was confirmed, I subperiosteally dissected the gomez willem colli musculature. Self-retaining retractor was placed. The anesthesiologist deflated and rein flated the cuff. I then performed a radical diskectomy using curettes, Kerrison punches and pituita ry rongeur. I used a high-speed bur to thin down the posterior osteophytes. I then brought the mary roscope in and took a Kerrison and decompressed the spinal cord and neural foramina bilaterally. Ex truded herniation was identified and removed. Once this was done, all nerve signals returned to nor mal. I then prepared the endplates and placed various trials. I took the appropriate graft height, within which I placed allograft and I impacted the metallic intervertebral biomechanical device int o the C5-6 level to complete the anterior fusion at C5-6. I then placed an anterior cervical plate at C5-6, and placed 12 mm screws and locked down each of the screws. Once this was done, I took fin al AP and lateral images and I was happy with placement of the hardware and alignment of the spine. The wound was then irrigated. Hemostasis achieved with bipolar cautery and Surgifoam. The wound w as dry and therefore, I elected not to place a drain. I used bone wax into the screw holes from the previous plate removal. Microscope was taken off the field. Retractor was removed and I closed th e platysma with a running 2-0 Vicryl stitch. I then closed subcutaneous tissue with a 3-[address] itch. Dermabond was then applied. The patient was then awakened from anesthesia and taken to recov lola room in stable condition. Lap, sponge and instrument counts were correct x2. There were no keyana arent complications during the procedure. The patient will be admitted to [facility] for routine postoperative care to include pain contr ol, neurovascular checks, antibiotics and physical therapy. Dictated By: MILTON ZALDIVAR/MIGUEL Conf#: [id number] DID#: [id number]
[2017-02-28 05:21] LABS: BASOPHILS % 0.2 % (0.0-2.0); EOSINOPHILS % 0.1 % (0.0-7.0); HEMATOCRIT 37.6 % (37.0-47.0); HEMOGLOBIN 12.3 g/dl (12.0-16.0); LYMPHOCYTES # 2.6 10^3/ul (0.8-2.9); MEAN CORPUSCULAR HEMOGLOBIN 29.9 pg (29.0-33.0); MEAN CORPUSCULAR HGB CONC 32.7 g/dl (32.0-37.0); MEAN CORPUSCULAR VOLUME 91.3 fl (82.0-101.0); MEAN PLATELET VOLUME 10.1 fl (7.4-10.4); MONOCYTE # 0.9 10^3/ul (0.3-0.9); MONOCYTES % 6.6 % (0.0-11.0); NEUTROPHIL # 10.1 10^3/ul (1.6-7.5); NEUTROPHILS % 73.6 % (39.0-77.0); PLATELET COUNT 229 10^3/UL (140-415); RED BLOOD COUNT 4.12 10^6/ul (4.20-5.40); RED CELL DISTRIBUTION WIDTH 12.3 % (11.5-14.5); WHITE BLOOD COUNT 13.7 10^3/ul (4.8-10.8)
[2017-02-28 05:55] VITALS: BP 125/73; PULSE 75; RESP 18
[2017-02-28 06:59] LABS: CALCIUM 9.1 mg/dl (8.4-10.2); CREATININE 0.74 mg/dl (0.44-1.00); MAGNESIUM 1.9 mg/dl (1.7-2.5); POTASSIUM 4.6 mmol/L (3.5-5.1)
--- NOTE | 2017-02-28 08:02 | CONS ---
Date/Time of Note Date/Time of Note DATE: 02/28/17 TIME: 07:53 Consult Date/Type/Reason Admit Date/Time Feb 27, 2017 at 10:23 Initial Consult Date 02/20/2017 Type of Consultation: internal medicine Reason for Consultation medical f/u Ordering Provider: JIM ZAMBRANO MD Subjective alert this am lots of neck pain overnight and now.no other major complaints Objective Vital Signs Date Time Temp Pulse Resp B/P Pulse Ox O2 Delivery O2 Flow Rate FiO2 02/28/17 05:55 98.3 75 18 125/73 96 Room Air 02/27/17 14:20 10.0 Intake and Output 02/27/17 02/27/17 02/28/17 15:00 23:00 07:00 Intake Total 1000 ml 50 ml 2000 ml Output Total 40 ml 1250 ml Balance 960 ml 50 ml 750 ml Exam vss heent negative scar visible right side anterior neck lung clear heart regular rhythm abdomen soft Results/Medications Result Diagram: 02/28/17 0440 02/28/17 0440 Results 24 hrs Laboratory Tests Test 02/28/17 04:40 02/28/17 05:27 White Blood Count 13.7 H Red Blood Count 4.12 L Hemoglobin 12.3 Hematocrit 37.6 Mean Corpuscular Volume 91.3 Mean Corpuscular Hemoglobin 29.9 Mean Corpuscular Hemoglobin Concent 32.7 Red Cell Distribution Width 12.3 Platelet Count 229 Mean Platelet Volume 10.1 Neutrophils % 73.6 Lymphocytes % 19.0 Monocytes % 6.6 Eosinophils % 0.1 Basophils % 0.2 Nucleated Red Blood Cells % 0.0 Neutrophils # 10.1 H Lymphocytes # 2.6 Monocytes # 0.9 Eosinophils # 0.0 Basophils # 0.0 Nucleated Red Blood Cells # 0.0 Sodium Level 140 Potassium Level 4.6 Chloride Level 106 Carbon Dioxide Level 26 Anion Gap 13 Blood Urea Nitrogen 8 Creatinine 0.74 Glucose Level 105 Calcium Level 9.1 Magnesium Level 1.9 Lab Scanned Report LAB Medications Current Medications Potassium Chloride/Dextrose/ Sod Cl (D5-1/2ns + KCl 20 Meq) 1,000 ml @ 100 mls/ hr Q10H IV Last administered on 02/28/17t 03:43; Admin Dose 100 MLS/HR; Start 02/27/17 at 11:56 Oxycodone/ Acetaminophen (Endocet (10/ 325)) 1 tab Q4H PRN PO PAIN LEVEL 1-5; Start 02/28/17 at 09:30 Oxycodone/ Acetaminophen (Endocet ( 325)) 2 tab Q4H PRN PO PAIN LEVEL 6-10; Start 02/28/17 at 09:30 Hydromorphone HCl (Dilaudid) 0.2 mg Q1H PRN IV BREAKTHROUGH PAIN; Start at 12:00 Ondansetron HCl (Zofran Inj) 4 mg Q6H PRN IV NAUSEA AND/OR VOMITING; Start at 12:00 Bisacodyl (Dulcolax Supp) [address] CONSTIPATION; Start 02/27/17 at 12:00 Docusate Sodium (Colace) 100 mg BID PO Last administered on 02/27/17 20:30; Admin Dose 100 MG; Start 02/27/17 at 21:00 Al Hydrox/Mg Hydrox/Simethicone (Mag-Al Plus) 15 ml Q6H PRN PO CONSTIPATION/ DYSPEPSIA; Start 02/27/17 at 12:00 Acetaminophen (Tylenol Tab) 650 mg Q4H PRN PO CARROLL OR TEMP GREATER THAN 101.3F; Start 02/27/17 at 12:00 Cyclobenzaprine HCl (Flexeril) 10 mg TID PRN PO MUSCLE SPASMS Last administered on 02/28/17 05:51; Admin Dose 10 MG; Start 02/27/17 at 12:00 Phenol (Cepastat Lozenge) 1 lozenge PRN PRN MT SORE THROAT Last administered on 02/28/17 05:51; Admin Dose 1 LOZENGE; Start 02/27/17 at 12:00 Diphenhydramine HCl (Benadryl) 25 mg Q6H PRN IV ITCHING; Start 02/27/17 at 12: 00 Naloxone HCl (Narcan) 0.2 mg Q2M PRN IV RR 8 BREATHS/MIN OR LESS; Start at 12:00 Hydromorphone HCl (Dilaudid HOME HEALTH OCCUPATIONAL THERAPIST) HOME HEALTH OCCUPATIONAL THERAPIST to be started in PACU Q4PCA IV Last administered on 02/27/17 22:43; Admin Dose 6 MG; Start 02/27/17 at 12:00; Stop 02/28/17 at 10:00 Miscellaneous Information 1. Hold HOME HEALTH OCCUPATIONAL THERAPIST at 1,000... HOME HEALTH OCCUPATIONAL THERAPIST IV ; Start 02/27/17 at 12 :00 Cyclobenzaprine HCl (Flexeril) 10 mg QHS PO Last administered on 02/27/17 20: 30; Admin Dose 10 MG; Start 02/27/17 at 21:00 Pregabalin (Lyrica) 75 mg TID PO Last administered on 02/27/17 20:30; Admin Dose 75 MG; Start 02/27/17 at 21:00 Assessment/Plan Chief Complaint/Hosp Course post op cervical disc surgery doing well medically stable Problems: Additional Assessment/Plan patient will be ambulating more today lab. save for elevated wbc probably 2nd to steroid use all wnl doing well in general management per rishi ross-- thank you MAYRA Mulligan MD Feb 28, 2017 08:02
[2017-02-28] MEDS: HYDROmorphONE 0.2 MG/ML PCA IV SCH (08:37)
[2017-02-28] MEDS: PREGABALIN 75 MG CAP PO SCH ×2 (08:39→13:19)
[2017-02-28] MEDS: DOCUSATE SODIUM 100 MG CAP PO SCH (08:39)
[2017-02-28 08:42] VITALS: BP 122/77; RESP 20
[2017-02-28] MEDS ORDERED: OXYCODONE/ACETAMINOPHEN (10/325) TAB PO PRN ×2 (09:30)
--- NOTE | 2017-02-28 12:06 | DS ---
Date/Time of Note Date/Time of Note DATE: 02/28/17 TIME: 12:05 Discharge Summary Admission/Discharge Info Admit Date/Time Feb 27, 2017 at 10:23 Discharge Date/Time February 27 Discharge Diagnosis Status post cervical fusion Procedures Cervical fusion Hx of Present Illness Neck and arm pain Hospital Course Status post cervical fusion. Doing well. Deemed stable for discharge with follow-up arranged Home Meds Reported Medications Pregabalin* (Lyrica*) 75 Mg Capsule, 75 MG PO TID, CAP 02/27/17 Cyclobenzaprine Hcl* (Cyclobenzaprine Hcl*) 10 Mg Tablet, 10 MG PO QHS, #90 TAB 02/27/17 Hydrocodone/Acetaminophen ([place] 10-325 Tablet) 1 Each Tablet, 1 EACH PO BID Y for PAIN, TAB 02/27/17 Discontinued Reported Medications Hydrocodone Bit-Acetaminophen* ([place]*) 1 Tab Tab, 1 TAB PO PRN 12/18/12 Lorazepam* (Ativan*) 0.5 Mg Tablet, 0.5 MG PO TID 12/18/12 Carisoprodol* (Soma*) 350 Mg Tablet, 350 MG PO DAILY 12/18/12 Gabapentin* (Neurontin* Liq) 250 Mg/5 Ml Solution, 350 MG PO DAILY 12/18/12 Primary Care Provider Kris Herrera MD Pending Labs Laboratory Tests Test 02/28/17 04:40 02/28/17 05:27 White Blood Count 13.710^3/ul (4.8-10.8) Red Blood Count 4.1210^6/ul (4.20-5.40) Hemoglobin 12.3g/dl (12.0-16.0) Hematocrit 37.6% (37.0-47.0) Mean Corpuscular Volume 91.3fl (82.0-101.0) Mean Corpuscular Hemoglobin 29.9pg (29.0-33.0) Mean Corpuscular Hemoglobin Concent 32.7g/dl (32.0-37.0) Red Cell Distribution Width 12.3% (11.5-14.5) Platelet Count 13087^3/UL (140-415) Mean Platelet Volume 10.1fl (7.4-10.4) Neutrophils % 73.6% (39.0-77.0) Lymphocytes % 19.0% (15.0-51.0) Monocytes % 6.6% (0.0-11.0) Eosinophils % 0.1% (0.0-7.0) Basophils % 0.2% (0.0-2.0) Nucleated Red Blood Cells % 0.0/100WBC (0.0-0.0) Neutrophils # 10.110^3/ul (1.6-7.5) Lymphocytes # 2.610^3/ul (0.8-2.9) Monocytes # 0.910^3/ul (0.3-0.9) Eosinophils # 0.010^3/ul (0.0-0.5) Basophils # 0.010^3/ul (0.0-0.1) Nucleated Red Blood Cells # 0.010^3/ul (0.0-0.0) Sodium Level 140mmol/L (135-144) Potassium Level 4.6mmol/L (3.5-5.1) Chloride Level 106mmol/L (97-110) Carbon Dioxide Level 26mmol/L (21-31) Anion Gap 13 (8-16) Blood Urea Nitrogen 8mg/dl (7-20) Creatinine 0.74mg/dl (0.44-1.00) Glucose Level 105mg/dl (70-220) Calcium Level 9.1mg/dl (8.4-10.2) Magnesium Level 1.9mg/dl (1.7-2.5) Lab Scanned Report [id number] JIM ZAMBRANO MD Feb 28, 2017 12:06
== END 2017-02-28 16:00 | disposition home or self-care (01) | DRG 473 ==
LOC: REC 10:23 → EDSTATUS 12:00 → MS1 15:30
PROVIDERS: ADMIT Specialist; ATTEND Specialist
PROC: 0RT30ZZ Resection of Cervical Vertebral Disc, Open Approach (ICD-10-PCS; 2017-02-27)
PROC: 0PP304Z Removal of Internal Fixation Device from Cervical Vertebra, Open Approach (ICD-10-PCS; 2017-02-27)
PROC: 0RG10A0 Fusion of Cervical Vertebral Joint with Interbody Fusion Device, Anterior Approach, Anterior Column, Open Approach (ICD-10-PCS; principal; 2017-02-27 12:00)
DX: M50.122 Cervical disc disorder at C5-C6 level with radiculopathy (principal); M48.02 Spinal stenosis, cervical region; E66.9 Obesity, unspecified; Z68.34 Body mass index [BMI] 34.0-34.9, adult; Z47.2 Encounter for removal of internal fixation device
CPT/HCPCS: 72050; 80048; 83735; 84703; 85025; 86999; 97161; J0690; J1100; J1170; J2175; J2250; J2405; J2710; J2765; J3480